=== PATIENT | male | born 1995 | race Caucasian/White ===

== ENCOUNTER 2017-01-29 00:27 | Emergency (ER) | payer MEDICAID ==
[2017-01-29 01:01] VITALS: BP 136/82
== END 2017-01-29 01:02 | disposition home or self-care (01) ==
LOC: ED 00:27
DX: M25.562 Pain in left knee (principal); V49.9XXA Car occupant (driver) (passenger) injured in unspecified traffic accident, initial encounter; Y93.19 Activity, other involving water and watercraft; Y92.488 Other paved roadways as the place of occurrence of the external cause; Y99.8 Other external cause status